=== PATIENT | female | born 1935 | race Caucasian/White ===

== ENCOUNTER 2016-06-19 08:24 | Emergency (ER) | payer MEDICARE, OTHER ==
[~2016-06-19] VITALS: Ht 170.2 cm; Wt 75.0 kg
[~2016-06-19 08:24] MED LIST: Z.0.NO CURRENT MEDS
[2016-06-19 08:39] VITALS: BP 135/60; PULSE 92; RESP 16; TEMP 99; O2SAT 97
--- NOTE | 2016-06-19 08:59 | PD ---
HPI Chief Complaint: Chest Pain Time Seen by Provider: 08:41 Travel History International Travel<30 days: No Contact w/Intl Traveler<30days: No Traveled to known affect area: No History of Present Illness HPI 80-year-old female here for evaluation of chest pain. The patient states for the last week she has been having substernal chest discomfort which she describes as tightness/sharp. Symptoms have been worse with inspiration, made better by exertion, radiates to her left chest. She denies any known history of cardiac disease. She has been having a cough which she states is productive of yellowish sputum. No hemoptysis. No fever. No history of DVT or PE. No paresthesias or motor deficits. Currently the pain is moderate. PFSH Past Medical History Medical History: Denies Significant Hx Hx Anticoagulant Therapy: No Blood Disorders: No Cardiovascular Problems: Yes High Cholesterol: Yes Diabetes: No Diminished Hearing: No Endocrine: No Gastrointestinal Disorders: Yes GERD: Yes Genitourinary: No Immune Disorder: No Musculoskeletal: Yes Neurologic: No Psychiatric: No Reproductive: No Respiratory: No ?: Not Past Surgical History Eye Surgery: Yes (BILAT. CATARACT) Other Surgery: Yes (hernia x2) Social History Alcohol Use: No Tobacco Use: No Substance Use: No Allergies-Medications (Allergen,Severity, Reaction): Coded Allergies: No Known Allergies (Verified , 06/19/16) Reported Meds & Prescriptions Reported Meds & Active Scripts Active No Active Prescriptions or Reported Medications Review of Systems Except as stated in HPI: all other systems reviewed are Neg Physical Exam Narrative GENERAL: Well-developed, well-nourished, comfortable, no acute distress. SKIN: Focused skin assessment warm/dry. HEAD: Atraumatic. Normocephalic. EYES: Pupils equal and round. No scleral icterus. No injection or drainage. ENT: Mucous membranes pink and moist. NECK: Trachea midline. No JVD. CARDIOVASCULAR: Regular rate and rhythm. Distal pulses brisk and equal bilaterally. RESPIRATORY: No accessory muscle use. Clear to auscultation. Breath sounds equal bilaterally. GASTROINTESTINAL: Abdomen soft, non-tender, nondistended. MUSCULOSKELETAL: No obvious deformities. No clubbing. No cyanosis. No edema. Mild sternal tenderness without step-off, without crepitus, without paradoxical chest wall movement. NEUROLOGICAL: Awake and alert. No obvious cranial nerve deficits. Motor grossly within normal limits. Normal speech. PSYCHIATRIC: Appropriate mood and affect; insight and judgment normal. Data Data Last Documented VS Vital Signs Date Time Temp Pulse Resp B/P Pulse Ox O2 Delivery O2 Flow Rate FiO2 06/19/16 09:15 16 100 Nasal Cannula 2 06/19/16 09:14 81 133/61 06/19/16 08:39 99.0 Orders Basic Metabolic Panel (Bmp) (06/19/16 08:56) Ckmb (Isoenzyme) Profile (06/19/16 08:56) Complete Blood Count With Diff (06/19/16 08:56) D-Dimer (06/19/16 08:56) Magnesium (Mg) (06/19/16 08:56) Prothrombin Time / Inr (Pt) (06/19/16 08:56) Act Partial Throm Time (Ptt) (06/19/16 08:56) Troponin I (06/19/16 08:56) Chest, Single Ap (06/19/16 08:56) Ecg Monitoring (06/19/16 08:56) Iv Access Insert/Monitor (06/19/16 08:56) Oximetry (06/19/16 08:56) Oxygen Administration (06/19/16 08:56) Aspirin Chew (Aspirin Chew) (06/19/16 09:00) Sodium Chloride 0.9% Flush (Ns Flush) (06/19/16 09:00) Lipase (06/19/16 08:56) Al-Mag Hy-Si 40-40-4 Mg/Ml Liq (Mag-Al P (06/19/16 09:00) Lidocaine 2% Viscous (Xylocaine 2% Visco (06/19/16 09:00) Ct Pulmonary Angiogram (06/19/16 09:23) Electrocardiogram (06/19/16 08:30) Iohexol 350 Inj (Omnipaque 350 Inj) (06/19/16 11:15) Troponin I (06/19/16 11:38) Labs Laboratory Tests Test 06/19/16 06/19/16 08:50 11:40 White Blood Count 4.8 TH/MM3 Red Blood Count 4.34 MIL/MM3 Hemoglobin 12.7 GM/DL Hematocrit 39.0 % Mean Corpuscular Volume 90.1 FL Mean Corpuscular Hemoglobin 29.4 PG Mean Corpuscular Hemoglobin 32.6 % Concent Red Cell Distribution Width 14.4 % Platelet Count 240 TH/MM3 Mean Platelet Volume 7.9 FL Neutrophils (%) (Auto) 59.9 % Lymphocytes (%) (Auto) 27.9 % Monocytes (%) (Auto) 9.4 % Eosinophils (%) (Auto) 1.8 % Basophils (%) (Auto) 1.0 % Neutrophils # (Auto) 3.0 TH/MM3 Lymphocytes # (Auto) 1.3 TH/MM3 Monocytes # (Auto) 0.4 TH/MM3 Eosinophils # (Auto) 0.1 TH/MM3 Basophils # (Auto) 0.0 TH/MM3 CBC Comment DIFF FINAL Differential Comment Prothrombin Time 9.9 SEC Prothromb Time International 0.9 RATIO Ratio Activated Partial 23.2 SEC Thromboplast Time D-Dimer Quantitative (PE/DVT) 0.61 MG/L FEU Sodium Level 144 MEQ/L Potassium Level 3.7 MEQ/L Chloride Level 107 MEQ/L Carbon Dioxide Level 29.4 MEQ/L Anion Gap 8 MEQ/L Blood Urea Nitrogen 15 MG/DL Creatinine 0.84 MG/DL Estimat Glomerular Filtration 66 ML/MIN Rate Random Glucose 103 MG/DL Calcium Level 9.2 MG/DL Magnesium Level 2.2 MG/DL Total Creatine Kinase 62 U/L Troponin I LESS THAN 0.02 LESS THAN 0.02 NG/ML NG/ML Lipase 208 U/L [facility] Medical Decision Making Medical Screen Exam Complete: Yes Emergency Medical Condition: Yes Medical Record Reviewed: Yes Interpretation(s) EKG: Sinus, rate 90, normal axis, normal intervals, low QRS for is in precordial leads, no acute ischemic abnormality. Differential Diagnosis ACS, pneumothorax, pericarditis, PE, pneumonia, bronchitis, GERD Narrative Course Initial vital signs show heart rate 92, blood pressure 135/60, pulse ox 97% on room air, oral temp of 99F. CBC is unremarkable. BMP is unremarkable. Lipase is 208. Cardiac enzymes are negative. D-dimer is slightly positive at 0.61. CT pulmonary angiogram will be ordered to rule out PE. Chest x-ray: No acute disease. CT pulmonary angiogram: CONCLUSION: 1. No evidence for pulmonary embolism. 2. Mosaic attenuation which can be seen with small vessel versus small airway disease. Patient was made aware of all findings. She is resting comfortably talking on her cell phone. She still having some intermittent discomfort which sounds more pleuritic. I discussed with her I would like to admit her to the chest pain center for further cardiac evaluation. She does not want to be admitted at this time. She states her has dementia and she to take care of him. New plan is to check a delta troponin, and if negative, the patient will be discharged home with oral antibiotics for likely bronchitis as the patient believes she has "chest congestion." Delta troponin 3 hours after the first is also negative. I discussed with the patient that I would like to keep her in the hospital for further cardiac evaluation, however she is insistent upon being discharged home. I will start her on a Z-Eloy for her cough. PMD follow-up this week. She was informed on when to return to the emergency department. She verbalizes understanding and agreement with plan. Diagnosis Primary Impression: Cough Additional Impression: Atypical chest pain Referrals: Primary Care Physician 3 days Additional Instructions: Follow-up with your primary care physician this week. Take antibiotic as prescribed. Return to the emergency department for worsening symptoms or any other concerns. Scripts Azithromycin (Zithromax Z-Eloy)250 Mg Oknb240 Mg PO DIRECTED #1 DSPK Ref 0 500 MG (2 tabs) day 1, then 1 tab days 2-5. Prov:Marcial Nunez MD 06/19/16 Disposition: 01 DISCHARGE HOME Condition: Stable Marcial Nunez MD June 19, 2016 08:59
[2016-06-19] MEDS ORDERED: ASPIRIN 81 MG CHEW TAB PO ONE (09:00)
[2016-06-19] MEDS ORDERED: SODIUM CHLORIDE 0.9% FLUSH 10 ML FLUSH IVF PRN (09:00)
[2016-06-19] MEDS ORDERED: ALUMINUM/MAGNESIUM/SIMETH 30 ML CUP PO ONE (09:00)
[2016-06-19] MEDS ORDERED: LIDOCAINE VISCOUS 2% SOLN 15 ML UDC PO ONE (09:00)
[2016-06-19 09:06] LABS: EOSINOPHIL # 0.1 TH/MM3 (0-0.4); EOSINOPHIL % 1.8 % (0.0-4.0); HEMO FLAGS DIFF FINAL; LYMPH % 27.9 % (9.0-44.0); LYMPHOCYTE # 1.3 TH/MM3 (1.0-4.8); MEAN CELL VOLUME 90.1 FL (80.0-100.0); MEAN CORPUSCULAR HEMOGLOBIN 29.4 PG (27.0-34.0); MEAN CORPUSCULAR HGB CONC 32.6 % (32.0-36.0); MONO % 9.4 % (0.0-8.0); NEUT % 59.9 % (16.0-70.0); PLATELET COUNT 240 TH/MM3 (150-450); RED BLOOD COUNT 4.34 MIL/MM3 (4.00-5.30); RED CELL DISTRIBUTION WIDTH 14.4 % (11.6-17.2); WHITE BLOOD COUNT 4.8 TH/MM3 (4.0-11.0)
[2016-06-19 09:13] LABS: CHLORIDE 107 MEQ/L (98-107); POTASSIUM 3.7 MEQ/L (3.5-5.1); SODIUM (NA) 144 MEQ/L (136-145)
--- NOTE | 2016-06-19 09:13 | RADHPO ---
EXAM DATE/TIME: 06/19/2016 09:07 [facility] COMPARISON: No previous studies available for comparison. INDICATIONS : Chest pain, cough, short of breath MEDICAL HISTORY : None. SURGICAL HISTORY : None. ENCOUNTER: Initial ACUITY: 1 week PAIN SCORE: 6/10 LOCATION: Bilateral chest FINDINGS: A single view of the chest demonstrates the lungs to be symmetrically aerated without evidence of mas s, infiltrate or effusion. The cardiomediastinal contours are unremarkable. Osseous structures are intact. CONCLUSION: No acute disease. Madhu Vieira MD on June 19, 2016 at 9:11 Board Certified Radiologist. This report was verified electronically.
[2016-06-19 09:14] VITALS: BP 133/61; PULSE 81; RESP 16; O2SAT 100
[2016-06-19 09:15] VITALS: RESP 16; O2SAT 100
[2016-06-19 09:17] LABS: ANION GAP 8 MEQ/L (5-15); BICARBONATE 29.4 MEQ/L (21.0-32.0); BLOOD UREA NITROGEN 15 MG/DL (7-18); MAGNESIUM 2.2 MG/DL (1.5-2.5)
[2016-06-19 09:19] LABS: APTT (PATIENT) 23.2 SEC (24.3-30.1); INTERNATIONAL NORMALIZED RATIO 0.9 RATIO; PROTHROMBIN TIME - PATIENT 9.9 SEC (9.8-11.6)
[2016-06-19 09:20] LABS: GLOMERULAR FILTRATION RATE 66 ML/MIN (>89)
[2016-06-19 09:52] LABS: CREATINE KINASE 62 U/L (26-192)
[2016-06-19] MEDS ORDERED: IOHEXOL 350 MG/ML 10 ML VIAL (for RAD DIAG) IV ONE (11:15)
--- NOTE | 2016-06-19 11:32 | RADHPO ---
EXAM DATE/TIME: 06/19/2016 11:02 [facility] COMPARISON: No previous studies available for comparison. INDICATIONS : Chest pain for three weeks. IV CONTRAST: 100 cc Omnipaque 350 (iohexol) IV RADIATION DOSE: 7.76 CTDIvol (mGy) MEDICAL HISTORY : Cardiovascular disease. SURGICAL HISTORY : None. ENCOUNTER: Initial ACUITY: 3 weeks PAIN SCALE: 6/10 LOCATION: Bilateral chest TECHNIQUE: Volumetric scanning of the chest was performed using a pulmonary embolism protocol MIP images were re constructed. Using automated exposure control and adjustment of the mA and/or kV according to patien t size, radiation dose was kept as low as reasonably achievable to obtain optimal diagnostic quality images. FINDINGS: PULMONARY ARTERIES: No filling defects are seen in the pulmonary arteries through the segmental level. LUNGS: There is no consolidation or pneumothorax . No concerning pulmonary nodule is visualized. Mosaic att enuation. PLEURAE: There is no pleural thickening or pleural effusion. MEDIASTINUM: There is good visualization of the great vessels of the middle mediastinum. No evidence of mediastin al or hilar adenopathy/mass. Minimal coronary artery calcifications. MUSCULOSKELETAL: Within normal limits for patient age. MISCELLANEOUS: The visualized upper abdominal organs demonstrate no acute abnormality. CONCLUSION: 1. No evidence for pulmonary embolism. 2. Mosaic attenuation which can be seen with small vessel versus small airway disease. Madhu Vieira MD on June 19, 2016 at 11:29 Board Certified Radiologist. This report was verified electronically.
[2016-06-19] MEDS ORDERED: ZITHTAB PO (12:25)
[2016-06-19 12:32] VITALS: BP 130/56
--- NOTE | 2016-06-19 13:39 | EKG ---
Date Performed: 06/19/2016 Time Performed: 08:30:38 PTAGE: 80 years EKG: Possible ectopic atrial rhythm Low QRS voltages in precordial leads Since previous tracing, no significant change noted Borderline ECG PREVIOUS TRACING : 05/15/2007 19.55 DOCTOR: Rose Marie Augustin Interpretating Date/Time 06/19/2016 13:38:16
== END 2016-06-19 12:38 | disposition home or self-care (01) ==
LOC: PHED 08:24
DX: R05 Cough (principal); R07.9 Chest pain, unspecified
CPT/HCPCS: 71010; 71275; 80048; 82550; 83690; 83735; 84484; 85025; 85379; 85610; 85730; 93005; 99284; Q9967